=== PATIENT | female | born 1975 | race Native Hawaiian/Other Pacific Islander ===

== ENCOUNTER 2016-12-23 19:46 | Emergency (ER) | payer BC ==
[~2016-12-23] VITALS: Ht 162.6 cm; Wt 70.8 kg
[2016-12-23 20:29] LABS: PLATELET COUNT 319 K/uL (152-353)
[2016-12-23 22:23] VITALS: BP 135/72; TEMP 98
== END 2016-12-23 22:24 | disposition home or self-care (01) ==
LOC: ED 19:46
DX: N20.1 Calculus of ureter (principal); R10.9 Unspecified abdominal pain
CPT/HCPCS: 36415; 81000; 85027; 96372; 99283; J1885

== ENCOUNTER 2019-08-09 06:59 | Outpatient (CLI) | payer BC | END 2019-08-09 19:49 | disposition home or self-care (01) | LOC: LAB 06:59 | PROVIDERS: Internal Medicine Cardiovascular Disease | DX: E78.5 Hyperlipidemia, unspecified (principal) | CPT/HCPCS: 36415; 80061 ==

== ENCOUNTER 2020-06-28 14:56 | Outpatient (CLI) | payer OTHER | END 2020-06-28 21:42 | disposition home or self-care (01) | LOC: MAMMO 14:56 | PROVIDERS: ATTEND Obstetrics & Gynecology | DX: Z12.31 Encounter for screening mammogram for malignant neoplasm of breast (principal) ==

== ENCOUNTER 2021-10-16 08:46 | Outpatient (CLI) | payer OTHER | END 2021-10-16 21:38 | disposition home or self-care (01) | LOC: US 08:46 | PROVIDERS: ATTEND Internal Medicine Gastroenterology | DX: R10.9 Unspecified abdominal pain (principal) ==

== ENCOUNTER 2021-11-20 08:04 | Outpatient (CLI) | payer OTHER | END 2021-11-20 18:48 | disposition home or self-care (01) | LOC: NM 08:04 | PROVIDERS: ATTEND Nurse Practitioner | DX: R10.11 Right upper quadrant pain (principal); R11.0 Nausea | CPT/HCPCS: A9537 ==